=== PATIENT | female | born 1980 | race Caucasian/White ===

== ENCOUNTER 2020-03-13 17:50 | Emergency (ER) | payer OTHER ==
[2020-03-13 18:10] VITALS: BP 131/72; PULSE 63; TEMP 98.1; BMI 26.2
[2020-03-13] MEDS ORDERED: ONDANSETRON 4 MG/2 ML VIAL IVPUSH ONE (18:19)
[2020-03-13] MEDS ORDERED: ACETAMINOPHEN 1000 MG/100 ML VIAL (NON FORMULARY) IVPB ONE (18:19)
[2020-03-13] MEDS ORDERED: SODIUM CHLORIDE 0.9% 1000 ML INFUS.BAG IV ONE (18:19)
[2020-03-13] MEDS ORDERED: ACETAMINOPHEN INJECTION 100 ML IVPB ONE (18:31)
[2020-03-13] MEDS ORDERED: ONDANSETRON 4 MG/2 ML VIAL ONE (18:32)
[2020-03-13 18:39] LABS: BASO % 2.4 % (0-2.0); EOS % 0.5 % (0-4.5); HEMATOCRIT 39.4 % (32.4-45.2); HEMOGLOBIN 13.9 GM/dl (10.7-15.3); MCH 30.8 pg (25.7-33.7); MCHC 35.2 g/dl (32.0-36.0); MEAN CELL VOLUME 87.4 fl (80-96); MEAN PLT VOLUME 7.6 fl (7.5-11.1); MONO % 6.1 % (3.8-10.2); PLATELET COUNT 330 K/MM3 (134-434); RBC 4.51 M/mm3 (3.60-5.2); WHITE BLOOD COUNT 8.1 K/mm3 (4.0-10.8)
[2020-03-13] MEDS ORDERED: HYDROmorphone HCL CARPU-JECT 1 MG/1 ML DISP.SYRIN IVPUSH ONE ×2 (18:39→21:53)
[2020-03-13] MEDS ORDERED: HYDROmorphone HCL CARPU-JECT 1 MG/1 ML DISP.SYRIN ONE ×2 (18:41→21:59)
[2020-03-13 18:49] LABS: HCG,QUALITATIVE URINE Positive
[2020-03-13] MEDS ORDERED: OXYTOCIN 10 UNITS/ML VIAL ONE (18:54)
[2020-03-13 18:55] LABS: ALBUMIN 4.1 g/dl (3.4-5.0); CREATININE 0.6 mg/dl (0.55-1.3); POTASSIUM 3.9 mmol/L (3.5-5.1); TOT PROT 6.7 g/dl (6.4-8.2)
[2020-03-13 18:56] LABS: ACTIVATED PTT 28.1 SECONDS (25.2-36.5)
[2020-03-13 19:00] LABS: INR 1.14 (0.82-1.09); PROTHROMBIN TIME (PATIENT) 12.7 SEC (10.2-13.0)
[2020-03-13] MEDS ORDERED: D5W-LR W/ 20 UNITS OXYTOCIN 20 UNIT/1,000 ML INFUS.BAG IV SCH (19:00)
[2020-03-13 19:02] LABS: EPITHELIAL CELLS MODERATE /hpf
--- NOTE | 2020-03-13 19:04 | PDOC ---
Documentation entered by Ayaan Melgoza SCRIBE, acting as scribe for Evelio Griffin MD. Evelio Griffin MD: This documentation has been prepared by the Abad caceres Xhesika, SCRIBE, under my direction and personally reviewed by me in its entirety. I confirm that the documentation accurately reflects all work, treatment, procedures, and medical decision making performed by me. History of Present Illness - General Chief Complaint: Pain Stated Complaint: PELVIC/ABD PAIN Time Seen by Provider: 03/13/20 18:38 History Source: Patient Exam Limitations: No Limitations - History of Present Illness Initial Comments: 03/13/20 18:41 The patient is a 39 year old female with a PMH of endometriosis who presents to the ED for spuprapubic pain and vaginal bleeding. Pt states she had a miscarriage 2 weeks ago, was on medication (orally and vaginally) prescribed by her LONGITUDINAL FLOAT OPERATOR (Dr. Colon). Pt states in the beginning of her miscarriage she endorsed some abdominal cramping and vaginal bleeding. Pt yesterday morning, the patient endorsed severe suprapubic pain described as cramping, associated with vaginal bleeding (passing tissue), nausea and vomiting, Allergy: NKDA OBGYN: Dr. Colon ([place]) Past History - Medical History Allergies/Adverse Reactions: Allergies Allergy/AdvReac Type Severity Reaction Status Date / Time No Known Allergies Allergy Verified 03/13/20 17:52 Home Medications: Ambulatory Orders Ibuprofen 600 mg PO QID PRN #20 tablet 03/13/20 Ondansetron [Zofran *Odt*] 4 mg SL TID PRN #9 od.tablet 03/13/20 Oxycodone HCl 10 mg PO QID PRN #12 tablet MDD 4 03/13/20 COPD: No Disorders: Yes (ENDOMETRIOSIS) - Psycho-Social/Smoking History Smoking History: Current some day smoker Have you smoked in the past 12 months: Yes Information on smoking cessation initiated: Yes - Substance Abuse Hx (Audit-C & DAST Scrn) How often the patient has a drink containing alcohol: Monthly or less Score: In Men: 4 or > Positive; In Women: 3 or > Positive: 1 Screen Result (Pos requires Nsg. Audit-10AR): Negative In the last yr the pt used illegal drug/Rx for NonMed reason: No Score: Yes response is considered Positive: 0 Screen Result (Positive result requires Nsg. DAST-10): Negative Review of Systems - Review of Systems Able to Perform ROS?: Yes Comments:: 03/13/20 18:47 A complete review of 10 out of 10 review of systems is taken and is negative apart from what is previously mentioned below and in the HPI. *Physical Exam - Vital Signs Last Vital Signs Temp Pulse Resp BP Pulse Ox 98.1 F 63 18 131/72 97 03/13/20 17:50 03/13/20 17:50 03/13/20 17:50 03/13/20 17:50 03/13/20 17:50 - Physical Exam 03/13/20 18:47 Vitals: Triage Vital signs reviewed General Appearance: no acute distress, well nourished well developed, Neck: Supple;No Nuchal rigidity Chest Wall: Nontender Cardiac: Regular rate and rhythm, no murmurs, no rubs, no gallops, Lungs: Clear to auscultation bilateral, good air movement bilaterally, Abdomen: +diffuse lower abdominal pain. Soft, nondistended, normal bowel sounds . No rebound. : + diffuse vaginal pain L>R on pelvic exam. Extremities: Full range of motion to all extremities, no cyanosis, clubbing, or edema Skin: Warm and dry, no rashes or lesions, no petechiae Neuro: AOX3; Cranial Nerves 2-12 grossly c intact, Strength intact to all extremities, Sensation intact to all extremities, gait normal ED Treatment Course - LABORATORY CBC & Chemistry Diagram: 03/13/20 18:35 03/13/20 18:25 Medical Decision Making - Critical Care Time Total Critical Care Time (minutes): 35 Critical Care Statement: The care of this patient involved high complexity decision making to prevent further life threatening deterioration of the patient's condition and/or to evaluate & treat vital organ system(s) failure or risk of failure. - Medical Decision Making 03/13/20 18:55 39 year old female with a PMH of endometriosis who presents to the ED for spuprapubic pain. Called to the bedside for patient in severe pain vital signs stable. Was treated 2 weeks ago with medications unknown name to induce miscarriage Diffuse lower abdominal pain but no peritoneal signs very tender pelvic examination patient treated with IV Tylenol IV Dilaudid IV fluids and IV Zofran Ultrasound ordered Spoke with on-call OBGYN Dr. Rivera who recommends 200unit Pitocin and fluids at 200cc per hour. Dr. Rivera will come and see the patient when results come back. to follow up US and results Discharge - Discharge Information Problems reviewed: Yes Clinical Impression/Diagnosis: Miscarriage, Incomplete Condition: Stable Disposition: HOME - Additional Discharge Information Prescriptions: Ibuprofen 600 mg PO QID PRN #20 tablet PRN Reason: Pain Level 4 - 6 Oxycodone HCl 10 mg PO QID PRN #12 tablet MDD 4 PRN Reason: Pain Level 7 - 10 Ondansetron [Zofran *Odt*] 4 mg SL TID PRN #9 od.tablet PRN Reason: nausea vomiting - Follow up/Referral Referrals: Len Rivera MD [Staff Physician] - - Patient Discharge Instructions Patient Printed Discharge Instructions: DI for Miscarriage Additional Instructions: you were evaluated in the ED for a miscarriage you received pitocin infusion you also received Rhogam for your RH Negative blood type status your ultrasound showed an incomplete miscarriage which is likely contributing to your symptoms - official report given to you, the summary is as follows: Ultrasound shows gestational sac in the lower uterine segment and has irregular shape containing pole that is corresponding to about 6 weeks 5 days, no cardiac activity is noted and this is compatible with demise There is heterogeneous and thickened endometrial stripe measuring 2.4 cm in thickness which is likely related to her current miscarriage. No pelvic free fluid, normal ovaries without evidence of torsion or cysts or mass. your blood work was within normal limits follow up with P[facility]ER HAND in the [place], Dr Colon, for further management, battalion chief doctor provided, or you can follow with yours in the [place]. if worsening symptoms, such as worsening bleeding, passing out, abdominal pain, fevers, vomiting, dehydration or other concerning symptoms, return sooner. you can take ibuprofen 400-600mg every 6 hours as needed OR tylenol 650 to 975 mg every 6 hours as needed for mild to moderate pain you can also take oxycodone 10mg every 6 hours as needed for Severe Pain, this can cause constipation and drowsiness. do not drink alcohol, drive or operate machinery while taking this medication. - Post Discharge Activity
[2020-03-13] MEDS ORDERED: KETOROLAC TROMETHAMINE 15 MG/ML VIAL IVPUSH ONE (20:06)
[2020-03-13] MEDS ORDERED: KETOROLAC TROMETHAMINE 15 MG/ML VIAL ONE (20:07)
--- NOTE | 2020-03-13 21:14 | PDOC ---
*Physical Exam - Vital Signs Last Vital Signs Temp Pulse Resp BP Pulse Ox 98.1 F 63 18 131/72 97 03/13/20 17:50 03/13/20 17:50 03/13/20 17:50 03/13/20 17:50 03/13/20 17:50 ED Treatment Course - LABORATORY CBC & Chemistry Diagram: 03/13/20 18:35 03/13/20 18:25 - ADDITIONAL ORDERS Additional order review: Laboratory Results 03/13/20 03/13/20 03/13/20 18:52 18:50 18:46 PT with INR 12.7 INR 1.14 PTT (Actin FS) 28.1 Sodium Potassium Chloride Carbon Dioxide Anion Gap BUN Creatinine Est GFR (CKD-EPI)AfAm Est GFR (CKD-EPI)NonAf Random Glucose Calcium Total Bilirubin AST ALT Alkaline Phosphatase Total Protein Albumin Urine Color Urine Appearance Urine pH Urine Protein Urine Glucose (UA) Urine Ketones Urine Blood Urine Nitrite Urine Bilirubin Urine Urobilinogen Ur Leukocyte Esterase Urine RBC Urine WBC Ur Transition Epith Cell Urine Bacteria Urine HCG, Qual Blood Type A NEGATIVE A NEGATIVE Antibody Screen Negative 03/13/20 03/13/20 18:42 18:25 PT with INR INR PTT (Actin FS) Sodium 137 Potassium 3.9 Chloride 107 Carbon Dioxide 19 L Anion Gap 11 BUN 6.0 L Creatinine 0.6 Est GFR (CKD-EPI)AfAm 134.96 Est GFR (CKD-EPI)NonAf 116.44 Random Glucose 99 Calcium 9.0 Total Bilirubin 1.0 AST 23 ALT 11 L Alkaline Phosphatase 44 L Total Protein 6.7 Albumin 4.1 Urine Color Brown Urine Appearance Slightly Urine pH 5.5 Urine Protein 1+ H Urine Glucose (UA) Negative Urine Ketones Negative Urine Blood 3+ H Urine Nitrite Negative Urine Bilirubin Negative Urine Urobilinogen 0.2 Ur Leukocyte Esterase 1+ Urine RBC 60-80 Urine WBC 10-20 Ur Transition Epith Cell Moderate Urine Bacteria Few Urine HCG, Qual Positive Blood Type Antibody Screen 03/13/20 18:35 RBC 4.51 MCV 87.4 MCHC 35.2 RDW 13.0 MPV 7.6 Neutrophils % 76.0 Lymphocytes % 15.0 Monocytes % 6.1 Eosinophils % 0.5 Basophils % 2.4 H - Medications Given in the ED: ED Medications Discontinued Medications Generic Name Dose Route Start Last Admin Trade Name Freq PRN Reason Stop Dose Admin Acetaminophen 1,000 mg 03/13/20 18:19 03/13/20 18:45 Ofirmev Injection - IVPB 03/13/20 18:20 1,000 mg ONCE ONE Administration Hydromorphone HCl 1 mg 03/13/20 18:39 03/13/20 18:50 Dilaudid Injection - IVPUSH 03/13/20 18:40 1 mg ONCE ONE Administration Ketorolac Tromethamine 15 mg 03/13/20 20:06 03/13/20 20:11 Toradol Injection - IVPUSH 03/13/20 20:07 15 mg ONCE ONE Administration Ondansetron HCl 4 mg 03/13/20 18:19 03/13/20 18:40 Zofran Injection IVPUSH 03/13/20 18:20 4 mg ONCE ONE Administration Sodium Chloride 1,000 ml 03/13/20 18:19 03/13/20 18:45 Normal Saline - IV 03/13/20 18:20 1,000 ml ONCE ONE Administration Medical Decision Making - Medical Decision Making 03/13/20 21:14 pt signed out at 7pm from Dr Griffin in summary 39 year old female with a PMH of endometriosis who presents to the ED for spuprapubic pain and vaginal bleeding, s/p miscarriage 2 weeks ago. She was on medication (orally and vaginally) prescribed by her REFORESTATION WORKER (Dr. Colon). Pt states in the beginning of her miscarriage she endorsed some abdominal cramping and vaginal bleeding. Pt yesterday morning, the patient endorsed severe suprapubic pain described as cramping, associated with vaginal bleeding (passing tissue), nausea and vomiting, vitals reviewed wnl. no e/o sepsis labs and lytes wnl UA with blood, +hcg as expected beta hcg is 3996. likely in process of completing her miscarriage received several rounds of analgesia, antiemetics, IVF pitocin infusion pelvic sono Ultrasound shows gestational sac in the lower uterine segment and has irregular shape containing pole that is corresponding to about 6 weeks 5 days, no cardiac activity is noted and this is compatible with demise There is heterogeneous and thickened endometrial stripe measuring 2.4 cm in thickness which is likely related to her current miscarriage. No pelvic free fluid, normal ovaries without evidence of torsion or cysts or mass. rh is negative, needs rhogam 300mcg x1 given cs with Dr Medina - call back, initially consulted with recs of pitocin which is completed now follow up with her DEPUTY SHERIFF/INVESTIGATOR, pt may need D&C which she has had with two prior miscarriages bleeding precautions analgesia regimen return precautions DC stable condition, rx analgesia provided, instructions and side effect profile. Patient verbalized understanding of impression and plan stable for discharge 03/13/20 21:55 03/13/20 22:42 Discharge - Discharge Information Problems reviewed: Yes Clinical Impression/Diagnosis: Miscarriage, Incomplete Condition: Stable Disposition: HOME - Admission No - Additional Discharge Information Prescriptions: Ibuprofen 600 mg PO QID PRN #20 tablet PRN Reason: Pain Level 4 - 6 Oxycodone HCl 10 mg PO QID PRN #12 tablet MDD 4 PRN Reason: Pain Level 7 - 10 Ondansetron [Zofran *Odt*] 4 mg SL TID PRN #9 od.tablet PRN Reason: nausea vomiting - Follow up/Referral Referrals: Lne Rivera MD [Staff Physician] - - Patient Discharge Instructions Patient Printed Discharge Instructions: DI for Miscarriage Additional Instructions: you were evaluated in the ED for a miscarriage you received pitocin infusion you also received Rhogam for your RH Negative blood type status your ultrasound showed an incomplete miscarriage which is likely contributing to your symptoms - official report given to you, the summary is as follows: Ultrasound shows gestational sac in the lower uterine segment and has irregular shape containing pole that is corresponding to about 6 weeks 5 days, no cardiac activity is noted and this is compatible with demise There is heterogeneous and thickened endometrial stripe measuring 2.4 cm in thickness which is likely related to her current miscarriage. No pelvic free fluid, normal ovaries without evidence of torsion or cysts or mass. your blood work was within normal limits follow up with DEPUTY SHERIFF/INVESTIGATOR in the [place], Dr Colon, for further management, pipe production worker doctor provided, or you can follow with yours in the [place]. if worsening symptoms, such as worsening bleeding, passing out, abdominal pain, fevers, vomiting, dehydration or other concerning symptoms, return sooner. you can take ibuprofen 400-600mg every 6 hours as needed OR tylenol 650 to 975 mg every 6 hours as needed for mild to moderate pain you can also take oxycodone 10mg every 6 hours as needed for Severe Pain, this can cause constipation and drowsiness. do not drink alcohol, drive or operate machinery while taking this medication. - Post Discharge Activity
[2020-03-13] MEDS ORDERED: RHO(D) IMMUNE GLOBULIN 1,500 UNIT DISP.SYRIN IM ONE (21:32)
[2020-03-13] MEDS ORDERED: METOCLOPRAMIDE HCL INJECTION 10 MG/2 ML VIAL IVPUSH ONE (21:53)
[2020-03-13] MEDS ORDERED: METOCLOPRAMIDE HCL INJECTION 10 MG/2 ML VIAL ONE (21:59)
== END 2020-03-13 22:51 | disposition home or self-care (01) ==
LOC: FER 17:50
PROC: 3E0233Z Introduction of Anti-inflammatory into Muscle, Percutaneous Approach (ICD-10-PCS; principal; 2020-03-13)
PROC: 3E033GC Introduction of Other Therapeutic Substance into Peripheral Vein, Percutaneous Approach (ICD-10-PCS; 2020-03-13)
DX: O03.9 Complete or unspecified spontaneous abortion without complication (principal)
CPT/HCPCS: 36415; 76830-TC; 80053; 81003; 81015; 84702; 84703; 85025; 85610; 85730; 86850; 86900; 86901; 86999; 99291; J0131; J1561

== ENCOUNTER 2021-04-16 00:14 | Emergency (ER) | payer OTHER ==
[2021-04-16 00:25] VITALS: BMI 26.2
[2021-04-16 00:32] VITALS: BP 140/97; PULSE 78; TEMP 98.2
[2021-04-16] MEDS ORDERED: DIPHTH,PERTUSS(ACELL),TET 0.5 ML DISP.SYRIN IM ONE (00:35)
== END 2021-04-16 01:32 | disposition home or self-care (01) ==
LOC: FER 00:14
PROC: 0HQNXZZ Repair Left Foot Skin, External Approach (ICD-10-PCS; principal; 2021-04-16)
PROC: 3E0234Z Introduction of Serum, Toxoid and Vaccine into Muscle, Percutaneous Approach (ICD-10-PCS; principal; 2021-04-16)
DX: S91.312A Laceration without foreign body, left foot, initial encounter (principal); W25.XXXA Contact with sharp glass, initial encounter
CPT/HCPCS: 73630-TC-LT; 90715; 99283-25

== ENCOUNTER 2023-02-25 00:07 | Emergency (ER) | payer BC, OTHER ==
[2023-02-25 01:35] VITALS: BP 124/85; PULSE 79; RESP 18; BMI 24.4
[2023-02-25 05:29] VITALS: TEMP 98.3
== END 2023-02-25 06:56 | disposition left against medical advice (07) ==
LOC: JER 00:07
DX: R07.81 Pleurodynia (principal); Y30.XXXA Falling, jumping or pushed from a high place, undetermined intent, initial encounter
CPT/HCPCS: 71046-TC-FY; 99283-25